=== PATIENT | female | born 1995 | race Caucasian/White ===

== ENCOUNTER 2020-06-28 10:21 | Emergency (ER) | payer MEDICAID, OTHER ==
[~2020-06-28] VITALS: Ht 167.6 cm; Wt 81.6 kg
[2020-06-28 11:19] VITALS: BP 131/100
== END 2020-06-28 12:08 | disposition home or self-care (01) ==
LOC: ER 10:21
DX: S93.401A Sprain of unspecified ligament of right ankle, initial encounter (principal); S90.31XA Contusion of right foot, initial encounter; W01.0XXA Fall on same level from slipping, tripping and stumbling without subsequent striking against object, initial encounter; Y93.89 Activity, other specified; Y92.89 Other specified places as the place of occurrence of the external cause; Y99.8 Other external cause status
CPT/HCPCS: 73610; 73630

== ENCOUNTER 2021-02-05 03:54 | Emergency (ER) | payer SELFPAY ==
[~2021-02-05] VITALS: Ht 167.6 cm; Wt 74.8 kg
[2021-02-05] MEDS ORDERED: ACETAMINOPHEN 500 MG TAB PO ONE (06:00)
[2021-02-05 07:28] VITALS: BP 124/92
== END 2021-02-05 07:35 | disposition home or self-care (01) ==
LOC: ER 03:54
DX: S93.492A Sprain of other ligament of left ankle, initial encounter (principal); X58.XXXA Exposure to other specified factors, initial encounter; Y93.89 Activity, other specified; Y92.89 Other specified places as the place of occurrence of the external cause; Y99.8 Other external cause status
CPT/HCPCS: 73610